=== PATIENT | male | born 1975 | race Caucasian/White ===

== ENCOUNTER 2019-08-29 14:17 | Inpatient (IN) | payer BC ==
[2019-08-29] MEDS ORDERED: LIDOCAINE 1% W/EPI 1:100,000 MDV 50 ML VIAL ONE (14:37)
[2019-08-29] MEDS ORDERED: ONDANSETRON 4 MG (ODT) TAB ONE (14:42)
--- NOTE | 2019-08-29 15:13 | RAD REPORT ---
EXAM DESCRIPTION: RAD - Foot Left 3 View - 08/29/2019 2:59 pm CLINICAL HISTORY: laceration COMPARISON: No comparisons FINDINGS: A fracture is not seen. Small radiopaque foreign bodies seen along the lateral soft tissue s of the third toe.
[2019-08-29] MEDS ORDERED: TETANUS & DIPHTHERIA TOX,ADULT 0.5 ML VIAL ONE (16:13)
--- NOTE | 2019-08-29 16:56 | P.HP ---
Certification for Inpatient Patient admitted to: Observation With expected LOS: <2 Midnights Patient will require the following post-hospital care: None Practitioner: I am a practitioner with admitting privileges, knowledge of patient current condition, hospital course, and medical plan of care. Services: Services provided to patient in accordance with Admission requirements found in Title 42 Section 412.3 of the Code of Federal Regulations Patient History Date of Service: 08/29/19 Primary Care Provider: Dr. Nina([place]) Reason for admission: Laceration left foot with form body History of Present Illness: 44-year-old male with history of prehypertension and attention deficit disorder. Patient reported to the ER after he jumped out of his boat on the boat ramp. He apparently caught himself on the side of the ramp. But his left foot landed on some barancles. He suffered a severe laceration to the bottom of his foot near the 3rd digit. He denied any fever, chills, nausea or vomiting. In the ER patient was evaluated. ER noted laceration. The ER physician tried to debride in clean the area as best he could. X-ray she still shows some form body. Case discussed with plastic surgery. Plastic surgery plans for further debridement and irrigation of wound. Plastic surgery requested hospitalist service to admit patient. When I saw the patient ER he was without significant pain. Patient appeared appropriate. Patient did not appear septic. Home medications list reviewed: Yes - Past Medical/Surgical History Diabetic: No -: Adult Attention deficit disorder -: Pre hypertension -: Alcohol use -: Tobacco abuse -: Tonsillectomy Psychosocial/ Personal History: Patient has a significant other. - Family History Family History: Reviewed- Non-Contributory - Family History Brother -: Other (see notes) (Multiple sclerosis) - Social History Smoking Status: Light Tobacco smoker (1-9 cigarettes/day) Counseled patient to stop smoking for: less than 10 minutes Smoking therapy provided: Yes Patient receptive to therapy: Yes Alcohol use: Yes CD- Drugs: No Caffeine use: Yes Place of Residence: Home Review of Systems General: As per HPI Eyes: Unremarkable ENT: Unremarkable Respiratory: Unremarkable Cardiovascular: Unremarkable Gastrointestinal: Unremarkable Genitourinary: Unremarkable Musculoskeletal: Leg Pain, As per HPI Integumentary: Unremarkable Neurological: Unremarkable Lymphatics: Unremarkable Physical Examination - Physical Exam General: Alert, In no apparent distress, Oriented x3, Cooperative HEENT: Atraumatic, Normocephalic, Mucous membr. moist/pink Neck: Supple Respiratory: Clear to auscultation bilaterally, Normal air movement Cardiovascular: Normal pulses, Regular rate/rhythm Gastrointestinal: Normal bowel sounds, Soft and benign, Non-distended, No tenderness, No masses, No rebound, No guarding Musculoskeletal: No erythema, No tenderness, No warmth Integumentary: Other (Left foot was bandaged. Pictures of wound was reviewed. The patient has deep laceration to the bottom the foot including the 3rd digit.) Neurological: Normal speech, Normal strength at 5/5 x4 extr, Normal tone, Normal affect Assessment and Plan - Plan Impression: Deep Laceration of left foot near 3rd digit with foreign body Pre hypertension Attention deficit disorder Alcohol abuse Tobacco abuse Plan: Deep Laceration of left foot near 3rd digit with foreign body: Patient will be admitted for further evaluation and treatment. Case was discussed with ER physician who spoke to plastic surgery. Plan for surgery tomorrow. Likely irrigation and debridement of laceration. This may require multiple surgeries. Await findings and recommendations by plastic surgery tomorrow. Will provide medication for pain. Will keep the patient NPO after midnight. Anticipate discharge likely in the next 24 to 72 hr pending plastic surgery evaluation and treatment. Will obtain CBC, BMP and PTT in preparation for surgery. Patient low risk for complication. Pre hypertension: Will monitor blood pressure closely. If blood pressure elevated patient may require medication. Will obtain EKG for preop. Attention deficit disorder: Patient takes medication as an outpatient. Will hold medication at this time. Alcohol abuse: Patient admits drinking a bottle of wine daily. Will start IV fluids. Tobacco abuse: Patient dips tobacco. Patient counseled on tobacco. Patient may require nicotine patch. Discharge Plan: Home Plan to discharge in: 48 Hours - Advance Directives Does patient have a Living Will: No Does patient have a Durable POA for Healthcare: No - Code Status/Comfort Care Code Status Assessed: Yes (Patient is full code) Time Spent Managing Pts Care (In Minutes): 55
[2019-08-29] MEDS ORDERED: DOXYCYCLINE 100 MG in NA CHLORIDE 0.9% 100 ML IVPB ONE (17:00)
--- NOTE | 2019-08-29 17:09 | EDPHYS ---
Physician Documentation [facility] Name: Willy Sanchez Age: 44 yrs Sex: Male : 1975 Arrival Date: 08/29/2019 Time: 14:20 Bed 2 Private MD: ED Physician Jamaal Monge HPI: 08/28 16:27 This 44 yrs old Male presents to ER via Ambulatory with complaints of ps1 Laceration To Foot. 16:27 Patient slid down boat and lacerated left foot on barnacles. Pain rated as moderate and ps1 worse with movement. Bleeding controlled. 3rd toe degloved in middle extending down to ball of foot. Can move all digits. No obvious deformity. . Historical: - Allergies: 14:29 No Known Allergies; ll1 - PMHx: 14:29 Hypertension; ll1 - Immunization history:: Last tetanus immunization: unknown. - Social history:: Smoking status: unknown. ROS: 16:27 Constitutional: Negative for fever, chills, and weight loss, Eyes: Negative for injury, ps1 pain, redness, and discharge, Cardiovascular: Negative for chest pain, palpitations, and edema, Respiratory: Negative for shortness of breath, cough, wheezing, and pleuritic chest pain, Abdomen/GI: Negative for abdominal pain, nausea, vomiting, diarrhea, and constipation, Skin: Negative for injury, rash, and discoloration, Neuro: Negative for headache, weakness, numbness, tingling, and seizure. 16:27 MS/extremity: Positive for laceration, of the plantar aspect of left third toe and ball of left foot. Exam: 16:27 Constitutional: This is a well developed, well nourished patient who is awake, alert, ps1 and in no acute distress. Head/Face: Normocephalic, atraumatic. Eyes: Pupils equal round and reactive to light, extra-ocular motions intact. Lids and lashes normal. Conjunctiva and sclera are non-icteric and not injected. Chest/axilla: Normal chest wall appearance and motion. Nontender with no deformity. No lesions are appreciated. Cardiovascular: Regular rate and rhythm. No gallops, murmurs, or rubs. Normal PMI, no JVD. No pulse deficits. Respiratory: Lungs have equal breath sounds bilaterally, clear to auscultation and percussion. No rales, rhonchi or wheezes noted. No increased work of breathing, no retractions or nasal flaring. Abdomen/GI: Soft, non-tender, with normal bowel sounds. No distension or tympany. No guarding or rebound. No evidence of tenderness throughout. Neuro: Awake and alert, GCS 15, oriented to person, place, time, and situation. Cranial nerves II-XII grossly intact. Sensory grossly intact. Psych: Awake, alert, with orientation to person, place and time. Behavior, mood, and affect are within normal limits. 16:27 Musculoskeletal/extremity: Extremities: grossly normal except: noted in the plantar aspect of left third toe and left foot and ball of left foot: laceration, There is no evidence of tendon or nerve injury. FROM and sensation intact. . Vital Signs: 14:27 BP 172 / 114; Pulse 112; Resp 19; Temp 97.4; Pulse Ox 99% ; Pain 5/10; ll1 14:50 BP 121 / 86; Pulse 97; Resp 16 S; Pulse Ox 93% on R/A; jl7 15:33 BP 133 / 89; Pulse 99; Resp 16; Pulse Ox 100% ; sv 16:30 BP 142 / 92; Pulse 95; Resp 17; Pulse Ox 99% ; sv 17:50 Pulse 90; Resp 16; Pulse Ox 98% ; sv MDM: 14:49 Patient medically screened. ps1 16:27 Data reviewed: vital signs, nurses notes, and as a result, I will admit patient. ps1 Counseling: I had a detailed discussion with the patient and/or guardian regarding: the historical points, exam findings, and any diagnostic results supporting the discharge/admit diagnosis, lab results, the need for further work-up and treatment in the hospital. ED course: Patient has FB present. Spoke with padmini, will take patient to surgery. Admitted to hospitalist. Tdap updated. Washed out with chlorhexidine. . 08/28 16:01 Order name: Blood Culture Adult (2) ps1 08/28 17:05 Order name: Basic Metabolic Panel EDMS 08/28 17:05 Order name: CBC with Automated Diff EDMS 08/28 17:05 Order name: Magnesium EDMS 08/28 17:05 Order name: Protime (+INR) EDMS 08/28 17:05 Order name: PTT, Activated Partial Thromb EDMS 08/28 14:32 Order name: Foot Left 3 View XRAY; Complete Time: 15:32 ps1 08/28 14:52 Order name: Dressing - Wound; Complete Time: 16:35 jl7 08/28 14:52 Order name: Gloves, Sterile; Complete Time: 14:52 7 08/28 14:52 Order name: Setup Suture Tray; Complete Time: 14:52 [facility] Administered Medications: 14:35 Drug: Lidocaine-Epinephrine -1%: (1:100,000) 1 application {Note: adminstered by Dr. gissel Monge.} Volume: 20 ml; Route: Infiltration; 15:00 Follow up: Response: No adverse reaction [facility] 14:53 Drug: Zofran (Ondansetron) 4 mg Route: PO; [facility] 16:35 Follow up: Response: No adverse reaction [facility] 16:34 Drug: Tetanus-Diphtheria Toxoid Adult 0.5 ml {Manager Service Desk: [employer]. Exp: jl7 06/27/2021. Lot #: [id number]. } Route: IM; Site: right deltoid; 17:43 Follow up: Response: No adverse reaction [facility] 16:42 Drug: Doxycycline 100 mg Route: IV; Rate: bolus; Site: left antecubital; [facility] 17:44 Follow up: Response: No adverse reaction; IV Status: Completed infusion [facility] 18:32 Follow up: Response: No adverse reaction; IV Status: Completed infusion; IV Intake: sv 100ml Disposition: 08/29/19 17:08 Hospitalization ordered by Lionel Corcoran for Observation. Preliminary diagnosis is Laceration with foreign body, left foot. - Bed requested for Telemetry/MedSurg (observation). - Status is Observation. sv - Condition is Fair. - Problem is new. - Symptoms are unchanged. Signatures: Dispatcher [employer] EDCT Citlali Zamarripa RN RN sv Martinez, Eric em1 Anabel Bunn RN RN jl7 Singer, Phillip, MD MD ps1 Lewis, Lynsay, RN RN ll1 Corrections: (The following items were deleted from the chart) 17:40 17:08 Hospitalization Ordered by Lionel Corcoran DO for Observation. Preliminary em1 diagnosis is Laceration with foreign body, left foot. Bed requested for Telemetry/MedSurg (observation). Status is Observation. Condition is Fair. Problem is new. Symptoms are unchanged. ps1 18:32 17:40 08/29/2019 17:08 Hospitalization Ordered by Lionel Corcoran DO for Observation. sv Preliminary diagnosis is Laceration with foreign body, left foot. Bed requested for Telemetry/MedSurg (observation). Status is Observation. Condition is Fair. Problem is new. Symptoms are unchanged. em1
--- NOTE | 2019-08-29 17:09 | ER ---
Nurse's Notes [facility] Name: Willy Sanchez Age: 44 yrs Sex: Male : 1975 Arrival Date: 08/29/2019 Time: 14:20 Bed 2 Private MD: Diagnosis: Laceration with foreign body, left foot Presentation: 08/28 14:27 Chief complaint: Patient states: Left foot laceration. [place]. Bleeding controlled with pressure wrap he has in place. Coronavirus screen: The patient has NOT traveled to a country currently being monitored by the [facility] within the last 14 days. Ebola Screen: Patient denies travel to an Ebola-affected area in the 21 days before illness onset. Complicating Factors: There are no complicating factors for this patient. Initial Sepsis Screen: Does the patient meet any 2 criteria? HR > 90 bpm. Risk Assessment: Do you want to hurt yourself or someone else? Patient reports no desire to harm self or others. 14:27 Method Of Arrival: Ambulatory [facility] 14:27 Acuity: MARC 3 1 14:49 Initial Sepsis Screen: Does the patient have a suspected source of infection? No. jl7 Patient's initial sepsis screen is negative. Historical: - Allergies: 14:29 No Known Allergies; ll1 - PMHx: 14:29 Hypertension; ll1 - Immunization history:: Last tetanus immunization: unknown. - Social history:: Smoking status: unknown. Screenin:44 Abuse screen: Denies threats or abuse. Denies injuries from another. Nutritional jl7 screening: No deficits noted. Tuberculosis screening: No symptoms or risk factors identified. Fall Risk None identified. Assessment: 14:44 Pain: Complains of pain in ball of left foot Pain currently is 5 out of 10 on a pain jl7 scale. Neuro: Level of Consciousness is awake, alert, obeys commands, Oriented to person, place, time, situation. Cardiovascular: Patient's skin is warm and dry. Respiratory: Airway is patent Respiratory effort is even, unlabored, Respiratory pattern is regular, symmetrical. Derm: Skin is pink, warm \T\ dry. Musculoskeletal: Range of motion: intact in all extremities. Injury Description: Laceration sustained to ball of left foot is 2.6 to 7.5 cm long, not bleeding, was sustained 30-60 minutes ago. is bleeding no active bleeding noted. 16:37 Reassessment: Patient appears in no apparent distress at this time. No changes from jl7 previously documented assessment. Patient and/or family updated on plan of care and expected duration. Pain level reassessed. Patient is alert, oriented x 3, equal unlabored respirations, skin warm/dry/pink. 18:12 Reassessment: Attempted to call report, nurse to call back. sv Vital Signs: 14:27 BP 172 / 114; Pulse 112; Resp 19; Temp 97.4; Pulse Ox 99% ; Pain 5/10; ll1 14:50 BP 121 / 86; Pulse 97; Resp 16 S; Pulse Ox 93% on R/A; jl7 15:33 BP 133 / 89; Pulse 99; Resp 16; Pulse Ox 100% ; sv 16:30 BP 142 / 92; Pulse 95; Resp 17; Pulse Ox 99% ; sv 17:50 Pulse 90; Resp 16; Pulse Ox 98% ; sv ED Course: 14:20 Patient arrived in ED. mr 14:27 Jamaal Monge MD is Attending Physician. ps1 14:28 Triage completed. ll1 14:28 Arm band placed on Patient placed in an exam room. ll1 14:44 Anabel Bunn RN is Primary Nurse. jl7 14:44 Patient has correct armband on for positive identification. Bed in low position. Call jl7 light in reach. Side rails up X2. Pulse ox on. NIBP on. 14:54 Foot Left 3 View XRAY In Process Unspecified. EDMS 16:25 First set of blood cultures drawn by co. jl7 16:32 Second set of blood cultures drawn. jl7 16:36 Inserted saline lock: 20 gauge in left antecubital area, using aseptic technique. Blood jl7 collected. 17:07 Lionel Corcoran DO is Hospitalizing Provider. ps1 18:32 No provider procedures requiring assistance completed. Patient admitted, IV remains in sv place. intact. Administered Medications: 14:35 Drug: Lidocaine-Epinephrine -1%: (1:100,000) 1 application {Note: adminstered by Dr. gissel Monge.} Volume: 20 ml; Route: Infiltration; 15:00 Follow up: Response: No adverse reaction jl7 14:53 Drug: Zofran (Ondansetron) 4 mg Route: PO; 7 16:35 Follow up: Response: No adverse reaction jl7 16:34 Drug: Tetanus-Diphtheria Toxoid Adult 0.5 ml {D[employer]: [employer]. Exp: jl7 06/27/2021. Lot #: [id number]. } Route: IM; Site: right deltoid; 17:43 Follow up: Response: No adverse reaction jl7 16:42 Drug: Doxycycline 100 mg Route: IV; Rate: bolus; Site: left antecubital; jl7 17:44 Follow up: Response: No adverse reaction; IV Status: Completed infusion jl7 18:32 Follow up: Response: No adverse reaction; IV Status: Completed infusion; IV Intake: sv 100ml Intake: 18:32 IV: 100ml; Total: 100ml. sv Outcome: 17:08 Decision to Hospitalize by Provider. ps1 18:23 Admitted to Med/surg accompanied by tech, via wheelchair, room 425, with chart, Report sv called to Pattie ROBERTS 18:23 Condition: stable 18:23 Instructed on the need for admit. 18:32 Patient left the ED. sv Signatures: Dispatcher [employer] Citlali Martinez RN Dian Leblanc mr Anabel Bunn RN RN jl7 Jamaal Monge MD MD ps1 Lewis, Lynsay, RN RN ll1
[2019-08-29 18:34] LABS: Absolute Lymphocytes (CBC) 1.1 K/uL (0.7-4.9); Basophils % 0.4 % (0-1.3); Hematocrit 44.7 % (39.6-49.0); Lymphocytes % 12.9 % (15.3-44.8); MPV 8.3 fL (7.6-11.3); RBC Red Blood Cell Count 4.59 M/uL (4.33-5.43)
[2019-08-29 18:43] VITALS: BMI 30.8
[2019-08-29 18:53] LABS: Magnesium 2.3 mg/dL (1.8-2.4); Potassium 3.9 mmol/L (3.5-5.1)
[2019-08-29] MEDS ORDERED: ACETAMINOPHEN 500 MG TAB PO PRN (19:36)
[2019-08-29] MEDS ORDERED: TRAMADOL HCL 50 MG TAB PO PRN (19:36)
[2019-08-29] MEDS ORDERED: HYDROCODONE/APAP 7.5/325 MG TAB PO PRN (19:36)
[2019-08-29] MEDS ORDERED: ONDANSETRON 4 MG/2 ML VIAL IV PRN (19:36)
[2019-08-29] MEDS: DOXYCYCLINE 100 MG in NA CHLORIDE 0.9% 100 ML IVPB SCH (19:38)
[2019-08-29 19:46] LABS: Protime INR 0.99
[2019-08-29] MEDS: ENOXAPARIN 40 MG/0.4 ML SQ SCH (21:18)
[2019-08-30] MEDS: MORPHINE 2 MG/ML SYR IV PRN ×2 (02:58→06:31)
[2019-08-30 04:20] LABS: Absolute Lymphocytes (CBC) 1.6 K/uL (0.7-4.9); Basophils % 0.7 % (0-1.3); MPV 8.2 fL (7.6-11.3); RBC Red Blood Cell Count 4.47 M/uL (4.33-5.43)
[2019-08-30 04:34] LABS: Magnesium 2.1 mg/dL (1.8-2.4); Potassium 4.4 mmol/L (3.5-5.1)
[2019-08-30] MEDS ORDERED: INFLUENZA VACCINE (for 3y+) 0.5 ML DOSE IMVAC ONE (08:00)
[2019-08-30] MEDS: DOXYCYCLINE 100 MG in NA CHLORIDE 0.9% 100 ML IVPB SCH (08:49)
[2019-08-30] MEDS: FOLIC ACID 1 MG, MULTIVITAMINS INJ 10 ML, THIAMINE HCL 100 MG in NA CHLORIDE 0.9% 1,000 ML IV SCH (08:49)
[2019-08-30] MEDS: NICOTINE 21 MG/PAT TD SCH (09:00)
[2019-08-30] MEDS ORDERED: NA CHLORIDE 0.9% 1,000 ML IV ONE (11:03)
--- NOTE | 2019-08-30 11:09 | P.PN ---
Subjective Date of Service: 08/30/19 Primary Care Provider: Dr. Nina([place]) Chief Complaint: Laceration left foot with form body Subjective: Doing well (Patient NPO for surgery.) Physical Examination - Vital Signs Temperature: 98.1 F Blood Pressure: 98/61 Pulse: 84 Respirations: 16 Pulse Ox (%): 95 - Physical Exam General: Alert, In no apparent distress, Oriented x3, Cooperative HEENT: Atraumatic Neck: Supple Respiratory: Clear to auscultation bilaterally, Normal air movement Cardiovascular: Normal pulses, Regular rate/rhythm Gastrointestinal: Normal bowel sounds, Soft and benign, Non-distended Integumentary: Other (Left foot bandaged) Neurological: Normal speech, Normal strength at 5/5 x4 extr, Normal tone, Normal affect - Studies Medications List Reviewed: Yes Assessment & Plan Discharge Plan: Home Plan to discharge in: 48 Hours Physician Review Additional Text: Impression: Deep Laceration of left foot near 3rd digit with foreign body Acute renal injury likely dehydration Pre hypertension Attention deficit disorder Alcohol abuse Tobacco abuse Plan: Deep Laceration of left foot near 3rd digit with foreign body: Patient currently NPO for surgery today. Await recommendations by plastic surgery. Will discuss plan of care with plastic surgery after intervention. Possible home in the next 24-48 hr. Patient on IV doxycycline. Will discuss with pharmacy. Acute renal injury likely dehydration: Patient appears dehydrated. Will increase IV fluids and give bolus. Will monitor electrolytes closely. Pre hypertension: Will monitor blood pressure closely. If blood pressure elevated patient may require medication. Attention deficit disorder: Patient takes medication as an outpatient. Will hold medication at this time. Alcohol abuse: Patient admits drinking a bottle of wine daily. Banana bag provided. Tobacco abuse: Patient dips tobacco. Patient counseled on tobacco. Patient may require nicotine patch. Time Spent Managing Pts Care (In Minutes): 55
[2019-08-30] MEDS ORDERED: LIDOCAINE 1% MPF 5 ML VIAL ONE (13:25)
[2019-08-30] MEDS ORDERED: FENTANYL CITR 100 MCG/2 ML ONE ×2 (13:25→14:38)
[2019-08-30] MEDS ORDERED: MIDAZOLAM HCL 2 MG/2 ML INJ ONE (13:25)
[2019-08-30] MEDS ORDERED: propofoL 200 MG/20 ML VIAL IV ONE (13:25)
[2019-08-30] MEDS ORDERED: KETOROLAC 30 MG/ML INJ ONE (14:44)
[2019-08-30] MEDS ORDERED: ONDANSETRON 4 MG/2 ML VIAL ONE (14:44)
[2019-08-30] MEDS ORDERED: Ringers Lactate 1,000 ML IV ONE (14:48)
[2019-08-30] MEDS ORDERED: MEPERIDINE HCL 50 MG/ML IM PRN (15:11)
[2019-08-30] MEDS: NA CHLORIDE 0.9% 1,000 ML IV SCH ×2 (16:00→16:07)
[2019-08-30] MEDS: Levofloxacin 750mg IV 750 MG/150 ML BAG IV SCH (16:07)
[2019-08-30] MEDS: ENOXAPARIN 40 MG/0.4 ML SQ SCH (19:53)
--- NOTE | 2019-08-30 21:41 | OP ---
Surgeon: Hugo Chin MD Property And Equipment Clerk: Kunal. Preoperative Diagnosis: Open wound of the left foot between third and fourth toes. Postoperative Diagnosis: Open wound of the left foot between third and fourth toes. Procedure Performed: Debridement of skin and subcutaneous tissue, removal of foreign body. Anesthesia: General. Procedure In Detail: The patient was placed supine on the operating table. After satisfactory induc tion of general anesthesia, the left foot was prepped with Betadine scrub, Betadine paint, dry steril e drapes applied in usual manner placed. Leg was elevated and exsanguinated with Esmarch. Tournique t was inflated to 350 mmHg and then scalpel and Tenotomy scissors was used to debride the skin edges. Laceration of skin between third and fourth toes. This is beginning on the plantar aspect extendin g all the way to the dorsum. He had a proximally based U-shaped flap that extended all way to the do rsal surface of the interspace 3rd and 4th. Hemostatic was used to remove the foreign body and the w ound was curetted, then jet lavaged, irrigated with 3 L of dilute Betadine solution. The skin edges were debrided and then the tourniquet released. Electrocautery was used for hemostasis. The wound w as closed partial with 3-0 Prolene simple sutures, horizontal mattress, and vertical mattress. Most distal portion was left opened. The flap may not be viable in that area. Dressing consists of Xeroform, 2 inch Inez, and Kerlix. The patient tolerated the procedure well an d returned to the recovery. OBEY/MODL Voice ID: [id number] Report ID: [id number]
[2019-08-31 05:06] LABS: Absolute Lymphocytes (CBC) 1.4 K/uL (0.7-4.9); Basophils % 0.7 % (0-1.3); Hematocrit 36.7 % (39.6-49.0); MPV 8.5 fL (7.6-11.3); RBC Red Blood Cell Count 3.77 M/uL (4.33-5.43)
[2019-08-31 05:09] LABS: Magnesium 2.1 mg/dL (1.8-2.4); Potassium 4.1 mmol/L (3.5-5.1)
[2019-08-31] MEDS: NA CHLORIDE 0.9% 1,000 ML IV SCH ×2 (08:00)
[2019-08-31] MEDS: FOLIC ACID 1 MG, MULTIVITAMINS INJ 10 ML, THIAMINE HCL 100 MG in NA CHLORIDE 0.9% 1,000 ML IV SCH (08:38)
[2019-08-31] MEDS: NICOTINE 21 MG/PAT TD SCH (08:38)
--- NOTE | 2019-08-31 10:14 | P.PN ---
Subjective Date of Service: 08/31/19 Primary Care Provider: Dr. Nina([place]) Chief Complaint: Laceration left foot with form body Subjective: Improving, Doing well Physical Examination - Vital Signs Temperature: 98 F Blood Pressure: 106/68 Pulse: 72 Respirations: 18 Pulse Ox (%): 96 - Physical Exam General: Alert, In no apparent distress, Oriented x3, Cooperative HEENT: Atraumatic Neck: Supple Respiratory: Clear to auscultation bilaterally, Normal air movement Cardiovascular: Normal pulses, Regular rate/rhythm Musculoskeletal: Other (Left foot bandaged) Neurological: Normal speech, Normal strength at 5/5 x4 extr, Normal affect - Studies Medications List Reviewed: Yes Assessment & Plan Discharge Plan: Home Plan to discharge in: Greater than 2 days Physician Review Additional Text: Impression: Deep Laceration of left foot near 3rd digit with foreign body status post debridement of skin/subcutaneous tissue and removal of foreign body Acute renal injury likely dehydration Pre hypertension Attention deficit disorder Alcohol abuse Tobacco abuse Plan: Deep Laceration of left foot near 3rd digit with foreign body status post debridement of skin/subcutaneous tissue and removal of foreign body: Patient had surgery yesterday for debridement and removal of foreign body. Plastic surgery plans for surgery again on Monday for irrigation and debridement and likely closure at that time. Will continue IV antibiotic therapy. Await culture results. Acute renal injury likely dehydration: This has improved. Continue with IV fluids. Once taking good oral intake then will discontinue fluids. Pre hypertension: Will monitor blood pressure closely. If blood pressure elevated patient may require medication. Attention deficit disorder: Patient takes medication as an outpatient. Will hold medication at this time. Alcohol abuse: Patient admits drinking a bottle of wine daily. Education has been addressed. Tobacco abuse: Patient dips tobacco. Patient counseled on tobacco. Patient may require nicotine patch. Time Spent Managing Pts Care (In Minutes): 55
[2019-08-31] MEDS: Levofloxacin 750mg IV 750 MG/150 ML BAG IV SCH (17:10)
[2019-08-31] MEDS ORDERED: INFLUENZA VACCINE (for 3y+) 0.5 ML DOSE IMVAC ONE (18:00)
[2019-08-31] MEDS: NACHLORIDE 0.45% 1,000 ML IV SCH ×2 (19:00→19:35)
[2019-08-31] MEDS: CODEINE 30MG/APAP 300MG TAB PO PRN (19:34)
[2019-08-31] MEDS: ENOXAPARIN 40 MG/0.4 ML SQ SCH (19:35)
[2019-09-01 06:22] LABS: Absolute Lymphocytes (CBC) 1.3 K/uL (0.7-4.9); Basophils % 0.4 % (0-1.3); Hematocrit 35.6 % (39.6-49.0); Lymphocytes % 21.6 % (15.3-44.8); MPV 8.3 fL (7.6-11.3); RBC Red Blood Cell Count 3.64 M/uL (4.33-5.43)
[2019-09-01 06:34] LABS: Magnesium 1.8 mg/dL (1.8-2.4); Potassium 4.2 mmol/L (3.5-5.1)
[2019-09-01] MEDS: NACHLORIDE 0.45% 1,000 ML IV SCH ×4 (06:37→22:30)
[2019-09-01] MEDS ORDERED: MAGNESIUM SULFATE 1 gm IVPB 1 GM/100 ML BAG IV ONE (08:00)
[2019-09-01] MEDS: NICOTINE 21 MG/PAT TD SCH (09:00)
[2019-09-01] MEDS: FOLIC ACID 1 MG, MULTIVITAMINS INJ 10 ML, THIAMINE HCL 100 MG in NA CHLORIDE 0.9% 1,000 ML IV SCH (09:29)
--- NOTE | 2019-09-01 11:41 | P.PN ---
Subjective Date of Service: 09/01/19 Primary Care Provider: Dr. Nina([place]) Chief Complaint: Laceration left foot with form body Subjective: Improving Physical Examination - Vital Signs Temperature: 97.8 F Blood Pressure: 117/71 Pulse: 75 Respirations: 17 Pulse Ox (%): 96 - Physical Exam General: Alert, In no apparent distress, Cooperative HEENT: Atraumatic Neck: Supple Respiratory: Clear to auscultation bilaterally, Normal air movement Cardiovascular: Normal pulses, Regular rate/rhythm Gastrointestinal: Normal bowel sounds, Soft and benign, Non-distended Integumentary: Other (Left foot bandaged.) - Studies Medications List Reviewed: Yes Assessment & Plan Discharge Plan: Home Plan to discharge in: 48 Hours Physician Review Additional Text: Impression: Deep Laceration of left foot near 3rd digit with foreign body status post debridement of skin/subcutaneous tissue and removal of foreign body Acute renal injury likely dehydration Pre hypertension Attention deficit disorder Alcohol abuse Tobacco abuse Plan: Deep Laceration of left foot near 3rd digit with foreign body status post debridement of skin/subcutaneous tissue and removal of foreign body: Patient has done well after surgery as far as pain. Plastic surgery plans for surgery again on Monday for irrigation and debridement and likely closure at that time. Will continue IV antibiotic therapy. Await culture results. Anticipate discharge likely after to stay. I will turn the service over to the hospitalist team tomorrow. I will go over the plan of care with him. Acute renal injury likely dehydration: This has improved. Discontinue IV fluids if taking good oral intake. Pre hypertension: Blood pressure has remained stable. No need for blood pressure medication at this time. Attention deficit disorder: Patient takes medication as an outpatient. Will hold medication at this time. Alcohol abuse: Patient admits drinking a bottle of wine daily. Education has been addressed. Tobacco abuse: Patient dips tobacco. Patient counseled on tobacco. Patient may require nicotine patch. Time Spent Managing Pts Care (In Minutes): 55
[2019-09-01] MEDS: Levofloxacin 750mg IV 750 MG/150 ML BAG IV SCH (16:56)
[2019-09-01] MEDS: CODEINE 30MG/APAP 300MG TAB PO PRN (20:54)
[2019-09-01] MEDS: ENOXAPARIN 40 MG/0.4 ML SQ SCH (20:54)
[2019-09-02 04:44] LABS: MPV 8.8 fL (7.6-11.3)
[2019-09-02 04:59] LABS: Absolute Lymphocytes (CBC) 1.6 K/uL (0.7-4.9); Basophils % 0.7 % (0-1.3); Hematocrit 37.1 % (39.6-49.0); RBC Red Blood Cell Count 3.89 M/uL (4.33-5.43)
[2019-09-02 05:19] LABS: Potassium 4.5 mmol/L (3.5-5.1)
[2019-09-02] MEDS: NACHLORIDE 0.45% 1,000 ML IV SCH ×3 (07:16→21:59)
[2019-09-02] MEDS: NICOTINE 21 MG/PAT TD SCH (09:00)
--- NOTE | 2019-09-02 09:23 | PN ---
. Debride possible skin graft. N.p.o. at midnight. OBEY/MOHINI Voice ID: [id number] Report ID: [id number] [facility]
[2019-09-02] MEDS: FOLIC ACID 1 MG, MULTIVITAMINS INJ 10 ML, THIAMINE HCL 100 MG in NA CHLORIDE 0.9% 1,000 ML IV SCH (10:26)
--- NOTE | 2019-09-02 12:47 | P.PN ---
Subjective Date of Service: 09/02/19 Primary Care Provider: Dr. Nina([place]) Chief Complaint: Laceration left foot with form body Patient has no complain. No fever recorded. Physical Examination - Vital Signs Temperature: 96.2 F Blood Pressure: 137/85 Pulse: 77 Respirations: 18 Pulse Ox (%): 99 - Physical Exam General: Alert, In no apparent distress, Oriented x3 HEENT: Mucous membr. moist/pink, Sclerae nonicteric Neck: Supple, JVD not distended Respiratory: Clear to auscultation bilaterally, Normal air movement Cardiovascular: No edema, Normal pulses, Regular rate/rhythm Gastrointestinal: Normal bowel sounds, Soft and benign, No tenderness Integumentary: Other (Sutured laceration-left foot 3rd digit and sole of the foot adjacent to the 3rd digit.) Neurological: Normal strength at 5/5 x4 extr - Studies Medications List Reviewed: Yes Assessment And Plan - Current Problems (Diagnosis) (1) Foot laceration Current Visit: Yes Status: Acute - Plan Dr. Chin's input appreciated. Patient will need another debridement and based on findings during debridement may need a skin graft per Dr. Chin. Continue IV Levaquin. Will add oral doxycycline to improve Vibrio coverage. Wound dressing per Dr. Chin. Pain management as needed. Physician Review Additional Text: Impression: Deep Laceration of left foot near 3rd digit with foreign body status post debridement of skin/subcutaneous tissue and removal of foreign body Acute renal injury likely dehydration Pre hypertension Attention deficit disorder Alcohol abuse Tobacco abuse Plan: Deep Laceration of left foot near 3rd digit with foreign body status post debridement of skin/subcutaneous tissue and removal of foreign body: Patient has done well after surgery as far as pain. Plastic surgery plans for surgery again on Monday for irrigation and debridement and likely closure at that time. Will continue IV antibiotic therapy. Await culture results. Anticipate discharge likely after to stay. I will turn the service over to the hospitalist team tomorrow. I will go over the plan of care with him. Acute renal injury likely dehydration: This has improved. Discontinue IV fluids if taking good oral intake. Pre hypertension: Blood pressure has remained stable. No need for blood pressure medication at this time. Attention deficit disorder: Patient takes medication as an outpatient. Will hold medication at this time. Alcohol abuse: Patient admits drinking a bottle of wine daily. Education has been addressed. Tobacco abuse: Patient dips tobacco. Patient counseled on tobacco. Patient may require nicotine patch.
[2019-09-02] MEDS: CODEINE 30MG/APAP 300MG TAB PO PRN ×3 (13:22→22:41)
[2019-09-02] MEDS: Levofloxacin 750mg IV 750 MG/150 ML BAG IV SCH (17:20)
[2019-09-02] MEDS: ENOXAPARIN 40 MG/0.4 ML SQ SCH (19:32)
[2019-09-03] MEDS: NACHLORIDE 0.45% 1,000 ML IV SCH ×3 (06:41→18:57)
[2019-09-03] MEDS: NICOTINE 21 MG/PAT TD SCH (08:07)
[2019-09-03] MEDS ORDERED: Ringers Lactate 1,000 ML IV ONE (08:53)
[2019-09-03] MEDS ORDERED: propofoL 200 MG/20 ML VIAL IV ONE (09:02)
[2019-09-03] MEDS ORDERED: FENTANYL CITR 100 MCG/2 ML ONE (09:03)
[2019-09-03] MEDS ORDERED: LIDOCAINE 2% MPF 5 ML VIAL ONE (09:04)
[2019-09-03] MEDS ORDERED: MIDAZOLAM HCL 2 MG/2 ML INJ ONE (09:04)
[2019-09-03] MEDS ORDERED: ONDANSETRON 4 MG/2 ML VIAL ONE (09:53)
--- NOTE | 2019-09-03 10:18 | OP ---
Surgeon: Hugo Chin MD Reference Assistant: None. Preoperative Diagnosis: Open wound of the left foot. Postoperative Diagnosis: Open wound of the left foot. Procedure Performed: Debridement of skin and subcutaneous tissue, flap advancement. Anesthesia: General. Description Of Procedure: After satisfactory induction of general anesthesia, the left leg was prepp ed with Betadine scrub, Betadine paint, dry sterile drapes applied in the usual manner. Sutures keo lamin from previous approximation. Distal portion of flap was not viable. This was debrided and the e pidermis was sloughed off and also debrided. This was about 1 cm. The flap was overlying the volar surface of the third toe at the DIP joint. The flap was then irrigated, debrided with a curette forc eps and scissors. The flap was advanced with 4-0 Prolene with flexion of IPJ of the toe and closed w ith 4-0 Prolene. The dressings consist of Xeroform, 2-inch Inez, and Kerlix. Patient tolerated the procedure well and returned to Recovery. OBEY/MOHINI Voice ID: [id number] Report ID: [id number]
[2019-09-03] MEDS: FOLIC ACID 1 MG, MULTIVITAMINS INJ 10 ML, THIAMINE HCL 100 MG in NA CHLORIDE 0.9% 1,000 ML IV SCH (10:43)
--- NOTE | 2019-09-03 13:59 | P.PN ---
Subjective Date of Service: 09/03/19 Primary Care Provider: Dr. Nina([place]) Chief Complaint: Laceration left foot with form body Status post repeat debridement of left foot. He did not require a skin graft. Physical Examination - Vital Signs Temperature: 97.6 F Blood Pressure: 151/89 Pulse: 97 Respirations: 16 Pulse Ox (%): 97 - Physical Exam General: Alert, In no apparent distress HEENT: Mucous membr. moist/pink Respiratory: Clear to auscultation bilaterally, Normal air movement Cardiovascular: No edema, Regular rate/rhythm, Normal S1 S2 Gastrointestinal: Normal bowel sounds, Soft and benign, No tenderness Musculoskeletal: Other (Left foot dressed.) Neurological: Other (Nonfocal) - Studies Medications List Reviewed: Yes Assessment And Plan - Current Problems (Diagnosis) (1) Foot laceration Current Visit: Yes Status: Acute - Plan Dr. Chin's input appreciated. Status post repeat debridement. Continue IV Levaquin. Wound dressing per Dr. Chin. Pain management as needed.
[2019-09-03] MEDS: Levofloxacin 750mg IV 750 MG/150 ML BAG IV SCH (16:11)
[2019-09-03] MEDS: CODEINE 30MG/APAP 300MG TAB PO PRN (16:11)
[2019-09-03] MEDS: ENOXAPARIN 40 MG/0.4 ML SQ SCH (21:02)
[2019-09-04] MEDS: NACHLORIDE 0.45% 1,000 ML IV SCH ×2 (04:00→11:00)
[2019-09-04] MEDS: NICOTINE 21 MG/PAT TD SCH (09:00)
[2019-09-04] MEDS: FOLIC ACID 1 MG, MULTIVITAMINS INJ 10 ML, THIAMINE HCL 100 MG in NA CHLORIDE 0.9% 1,000 ML IV SCH (09:33)
[2019-09-04 09:43] VITALS: TEMP 98
[2019-09-04 10:30] VITALS: O2SAT 95
[2019-09-04 12:36] VITALS: BP 127/72
--- NOTE | 2019-09-04 12:45 | P.DS ---
Admission Date: 08/31/19 Discharge Date: 09/04/19 Primary Care Provider: Dr. Nina([place]) Disposition: ROUTINE DISCHARGE Discharge Condition: GOOD Reason for Admission: Laceration left foot with form body Consultations: Plastic/Hand Surgeon Procedures: Sharp knife debridement. - Problems (1) Foot laceration Current Visit: Yes Status: Acute Brief History of Present Illness: 44-year-old gentleman with a history of attention deficit disorder presented to the ED after sustaining a large under water laceration to the sole of the left foot adjacent to the 1st toe. Plastic surgeon/hand surgeon dr. Chin was contacted and patient admitted for further management. Hospital Course: Patient was started on IV Levaquin to cover vibrio infection. His wound was debrided twice and sutured. Patient did not require a skin graft. He received about 5 days of IV antibiotics. Did not experience any fever. Patient is deemed clinically stable for discharge. He is prescribed Levaquin to complete 10 days of treatment. He will see Dr. Chin for post surgery follow up as outpatient. Vital Signs/Physical Exam: Temp Pulse Resp BP Pulse Ox 98.0 F 80 18 127/72 97 09/04/19 12:00 09/04/19 12:00 09/04/19 12:00 09/04/19 12:00 09/04/19 12:00 General: Alert, In no apparent distress, Oriented x3 HEENT: Mucous membr. moist/pink Neck: Supple Respiratory: Clear to auscultation bilaterally, Normal air movement Cardiovascular: No edema, Regular rate/rhythm, Normal S1 S2 Gastrointestinal: Normal bowel sounds, Soft and benign, No tenderness Neurological: Other (Nonfocal.) Laboratory Data at Discharge: WBC 6.8 K/uL (4.3-10.9) 09/02/19 03:46 Hgb 13.0 g/dL (13.6-17.9) L 09/02/19 03:46 Hct 37.1 % (39.6-49.0) L 09/02/19 03:46 Plt Count 191 K/uL (152-406) D 09/02/19 03:46 PT 11.8 SECONDS (9.2-12.8) 08/29/19 18:22 INR 0.99 08/29/19 18:22 APTT 22.8 SECONDS (21.7-34.4) 08/29/19 18:22 Sodium 142 mmol/L (136-145) 09/02/19 03:46 Potassium 4.5 mmol/L (3.5-5.1) 09/02/19 03:46 BUN 11 mg/dL (7-18) 09/02/19 03:46 Creatinine 1.29 mg/dL (0.55-1.3) 09/02/19 03:46 Glucose 97 mg/dL (74-106) 09/02/19 03:46 Magnesium 2.0 mg/dL (1.8-2.4) 09/02/19 03:46 Home Medications: Lisdexamfetamine Dimesylate [Vyvanse] 1 cap PO DAILY 08/30/19 Codeine/APAP [Tylenol #3*] 1 tab PO Q4HP PRN #30 tab 09/04/19 levoFLOXacin [Levaquin] 500 mg PO DAILY #5 tab 09/04/19 New Medications: Codeine/APAP [Tylenol #3*] 1 tab PO Q4HP PRN #30 tab PRN Reason: Pain Scale 5-7 (Moderate) levoFLOXacin [Levaquin] 500 mg PO DAILY #5 tab Diet: Regular Activity: Weight bearing as tolerated Followup: Hugo Chin MD [ACTIVE - CAN ADMIT] - 1 Week Time spent managing pt's care (in minutes): 36
--- NOTE | 2019-09-04 17:06 | PN ---
The patient's dressing is changed. We examined the flap, it is viable. He will be discharged home. Tylenol No. 3, 1 tab p.o. q.3 hours p.r.n. pain, antibiotics per the primary care doctor. He will r eturn to the office following Monday at 9 o'clock at [facility]. OBEY/MOHINI Voice ID: [id number] Report ID: [id number]
== END 2019-09-04 14:53 | disposition home or self-care (01) | DRG 902 ==
LOC: ER 14:17 → ERHOLD 16:51 → 4TH 18:04 → OBSVTOIN 08-31 11:33
PROVIDERS: ADMIT Family Medicine; ATTEND Internal Medicine
PROC: 0JCR0ZZ Extirpation of Matter from Left Foot Subcutaneous Tissue and Fascia, Open Approach (ICD-10-PCS; 2019-08-30)
PROC: 0JBR0ZZ Excision of Left Foot Subcutaneous Tissue and Fascia, Open Approach (ICD-10-PCS; principal; 2019-08-30 17:45)
PROC: 0JXR0ZB Transfer Left Foot Subcutaneous Tissue and Fascia with Skin and Subcutaneous Tissue, Open Approach (ICD-10-PCS; 2019-09-03)
PROC: 0JDR0ZZ Extraction of Left Foot Subcutaneous Tissue and Fascia, Open Approach (ICD-10-PCS; 2019-09-03)
DX: S91.322A Laceration with foreign body, left foot, initial encounter (principal); N17.9 Acute kidney failure, unspecified; E86.0 Dehydration; F98.8 Other specified behavioral and emotional disorders with onset usually occurring in childhood and adolescence; F10.10 Alcohol abuse, uncomplicated; R03.0 Elevated blood-pressure reading, without diagnosis of hypertension; Z79.890 Hormone replacement therapy; Z79.891 Long term (current) use of opiate analgesic
CPT/HCPCS: 36415; 80048; 83735; 85025; 85610; 85730; 87040; 88304; 90471; 90714; 96365; 99285; G0378; J1650; J2250; J2270; J2405; J2704; J3010; J3411; J3475; J7030; J7120; Q2035

== ENCOUNTER 2019-09-17 08:25 | Day surgery (SDC) | payer BC ==
[2019-09-17] MEDS ORDERED: LIDOCAINE 1% W/EPI 1:100,000 MDV 20 ML VIAL ONE (08:41)
[2019-09-17] MEDS ORDERED: MINERAL OIL, LITE 10 ML VIAL ONE (08:41)
[2019-09-17] MEDS ORDERED: CEFAZOLIN/SWI 1gm 1 GM/10 ML SYR ONE (08:42)
[2019-09-17] MEDS ORDERED: Ringers Lactate 1,000 ML IV ONE (08:42)
[2019-09-17] MEDS ORDERED: MIDAZOLAM HCL 2 MG/2 ML INJ ONE ×2 (08:58→09:16)
[2019-09-17] MEDS ORDERED: propofoL 200 MG/20 ML VIAL IV ONE (09:15)
[2019-09-17] MEDS ORDERED: LIDOCAINE 1% MPF 5 ML VIAL ONE (09:16)
[2019-09-17] MEDS ORDERED: FENTANYL CITR 100 MCG/2 ML ONE (09:16)
[2019-09-17] MEDS ORDERED: KETOROLAC 30 MG/ML INJ ONE (10:01)
[2019-09-17] MEDS ORDERED: ONDANSETRON 4 MG/2 ML VIAL ONE (10:02)
[2019-09-17] MEDS ORDERED: Mastisol Adhesive Liq ONE (10:02)
--- NOTE | 2019-09-17 10:51 | OP ---
Surgeon: Hugo Chin MD Preoperative Diagnosis: Open wound, left 3rd toe. Postoperative Diagnosis: Open wound, left 3rd toe. Procedure: Debridement of skin and subcutaneous tissue, full-thickness skin graft. Anesthesia: General. Procedure In Detail: After satisfactory induction of general anesthesia, left groin and left foot were prepped with Betadine scrub, Betadine paint, dry sterile drapes applied in the usual manner. The defect was measured on left foot. It was 1.5 x 0.75 cm. Elliptical incision was made over the right groin. Skin was harvested full thickness and then wound closed with interrupted 4-0 PDS followed 4-0 PDS running subcuticular. Tincture of benzoin, Steri-Strips, 4 x 4's tape. The recipient site was then debrided with scalpel, forceps, and curette. Jet lavaged with 100 mL of dilute Betadine solution, and skin graft sewn in place with 4-0 Prolene tied over Xeroform and foam rubber sponge. Dressings consisted of 2-inch Inez. The patient tolerated the procedure well and returned to Recovery. OBEY/MOHINI Voice ID: [id number] Report ID: [id number] [facility]
[2019-09-17] MEDS ORDERED: CODEINE 30MG/APAP 300MG TAB ONE (11:17)
[2019-09-17 13:13] VITALS: BP 137/86; TEMP 97.8; O2SAT 100
== END 2019-09-17 12:45 | disposition home or self-care (01) ==
LOC: OR 08:25
PROVIDERS: ATTEND Specialist
PROC: 0HBAXZZ Excision of Inguinal Skin, External Approach (ICD-10-PCS; 2019-09-17)
PROC: 0HRNX73 Replacement of Left Foot Skin with Autologous Tissue Substitute, Full Thickness, External Approach (ICD-10-PCS; principal; 2019-09-17 09:00)
DX: S91.105A Unspecified open wound of left lesser toe(s) without damage to nail, initial encounter (principal); F98.8 Other specified behavioral and emotional disorders with onset usually occurring in childhood and adolescence
CPT/HCPCS: 88312; 88304; 15240; J2704; J2250 ×2; J3010; J0690; J7120; J2405